=== PATIENT | female | born 1970 | race Caucasian/White ===

== ENCOUNTER 2022-04-25 01:48 | Day surgery (SDC) | payer OTHER, SELFPAY ==
[2022-04-11 13:33] VITALS: BMI 26.8
--- NOTE | 2022-04-25 09:31 | PM.HPGS ---
History of Present Illness History of Present Illness Consent: Risks, benefits, and alternatives have been discussed and questions answered. Patient agrees to proceed with procedure. Chief complaint: neoplasm screening Narrative: Rl Gutierrez is a 51 year old female Presents for screening colonoscopy. Patient's current weight appetite bowel movements are normal. Patient denies abdominal pain. She has had no bleeding. Family history noncontributory. Review of Systems Review of Systems: Review of systems noncontributory. [facility] Past Medical History Medical History (Updated 03/12/22 @ 18:08 by Alexa Perez PA-C) Anxiety Asthma Dyslipidemia Vitamin D deficiency Surgical History Surgical History (Updated 03/12/22 @ 18:06 by Alexa Perez PA-C) History of lumbar fusion Family History Family History (Updated 03/12/22 @ 09:26 by Nikkie Stevenson) Mother Hyperlipidemia Father Cardiomyopathy CKD (chronic kidney disease) Sibling Tachycardia Grandparent Carcinoma of colon Transaminitis Dyslipidemia Social History Social History (Updated 03/12/22 @ 08:26 by Nikkie Stevenson) Smoking status: Never smoker Alcohol intake: current Alcohol use details: rare use Substance use: never Substance use type: does not use Living arrangements: with family Gender identity (if verbalized by the patient): Female Sexual Orientation (if Verbalized by the Patient): Straight or Heterosexual Spiritual care concerns: No Meds Home Medications and Allergies Home Medications Medication Instructions Recorded Confirmed Type ergocalciferol (vitamin D2) 1,250 1,250 mcg PO WEEKLY #12 caps 02/07/22 04/11/22 Rx mcg (50,000 unit) capsule pseudoephedrine HCl 120 mg 120 mg PO DAILY #90 tabs 02/07/22 04/11/22 Rx tablet,extended release (Sudafed 12 Hour) pregabalin 75 mg capsule (Lyrica) 75 mg PO TID 03/12/22 04/11/22 History rosuvastatin 5 mg tablet 5 mg PO DAILY #90 tabs 03/31/22 04/11/22 Rx sertraline 50 mg tablet 50 mg PO DAILY #90 tabs 03/31/22 04/11/22 Rx sodium,potassium,mag sulfates 17.5 See Rx Instructions PO .COMPLEX 04/01/22 04/11/22 Rx gram-3.13 gram-1.6 gram oral soln #354 mL (Suprep Bowel Prep Kit) cholecalciferol (vitamin D3) 100 100 mcg PO DAILY 04/11/22 04/11/22 History mcg (4,000 unit) tablet meloxicam 15 mg tablet 15 mg PO DAILY 04/11/22 04/11/22 History Allergies Allergy/AdvReac Type Severity Reaction Status Date / Time ragweed pollen Allergy Unknown Unknown Verified 04/11/22 13:44 atorvastatin AdvReac Agitated Verified 04/11/22 13:44 tree pollen Allergy Unknown Unknown Uncoded 04/11/22 13:44 Exam Narrative: Physical exam reveals patient be alert. Vital signs stable. HEENT exam is unremarkable. Patient is anicteric. Lungs are clear to auscultation and percussion. Heart is without murmur or extra sounds. Abdomen bowel sounds are present soft nontender with no organomegaly. Digital external rectal exam is normal. Assessment and Plan Assessment and plan (1) Screening for colon cancer: Code(s): Z12.11 - Encounter for screening for malignant neoplasm of colon Status: Acute Assessment and Plan: Patient presents today for screening colonoscopy. She appears to be at average risk for colon polyps. Further recommendations will be given after endoscopy.
[2022-04-25 09:34] VITALS: BP 121/66; PULSE 72; RESP 18; TEMP 36.3; O2SAT 99
--- NOTE | 2022-04-25 09:40 | WPDANESEPPF ---
Anes - Initial Pre Proc Eval Procedure: Operation Date: 04/25/22 10:30 Proposed Procedures p Screening Colonoscopy - Onel Bruce MD Date/Time: 04/25/22 09:40 Surgeon: Onel Bruce MD Pre Op Diagnosis: neoplasm screening Patient Data Age: 51 Gender: F Height: 1.73 m Weight: 77.5 kg Last Vital Signs Temp 97.3 F L 04/25/22 09:34 Pulse 72 04/25/22 09:34 Resp 18 04/25/22 09:34 BP 121/66 04/25/22 09:34 Pulse Ox 99 04/25/22 09:34 O2 Del Method Room Air 04/25/22 09:34 Allergies Allergy/AdvReac Type Severity Reaction Status Date / Time ragweed pollen Allergy Unknown Unknown Verified 04/25/22 09:33 atorvastatin AdvReac Agitated Verified 04/25/22 09:33 tree pollen Allergy Unknown Unknown Uncoded 04/25/22 09:33 Home Medications Medication Instructions Recorded Confirmed Type ergocalciferol (vitamin D2) 1,250 1,250 mcg PO WEEKLY #12 caps 02/07/22 04/11/22 Rx mcg (50,000 unit) capsule pseudoephedrine HCl 120 mg 120 mg PO DAILY #90 tabs 02/07/22 04/11/22 Rx tablet,extended release (Sudafed 12 Hour) pregabalin 75 mg capsule (Lyrica) 75 mg PO TID 03/12/22 04/11/22 History rosuvastatin 5 mg tablet 5 mg PO DAILY #90 tabs 03/31/22 04/11/22 Rx sertraline 50 mg tablet 50 mg PO DAILY #90 tabs 03/31/22 04/11/22 Rx sodium,potassium,mag sulfates 17.5 See Rx Instructions PO .COMPLEX 04/01/22 04/11/22 Rx gram-3.13 gram-1.6 gram oral soln #354 mL (Suprep Bowel Prep Kit) cholecalciferol (vitamin D3) 100 100 mcg PO DAILY 04/11/22 04/11/22 History mcg (4,000 unit) tablet meloxicam 15 mg tablet 15 mg PO DAILY 04/11/22 04/11/22 History Patient hx anesthesia problems: none Family hx anesthesia problems: none Results Review: All pre-operative results and documents have been reviewed as part of the pre-operative evaluation. [facility] Past Medical History Medical History (Updated 03/12/22 @ 18:08 by Alexa Perez PA-C) Anxiety Asthma Dyslipidemia Vitamin D deficiency Surgical History Surgical History (Updated 03/12/22 @ 18:06 by Alexa Perez PA-C) History of lumbar fusion Family History Family History (Updated 03/12/22 @ 09:26 by Nikkie Stevenson) Mother Hyperlipidemia Father Cardiomyopathy CKD (chronic kidney disease) Sibling Tachycardia Grandparent Carcinoma of colon Transaminitis Dyslipidemia Social History Social History (Updated 03/12/22 @ 08:26 by Nikkie Stevenson) Smoking status: Never smoker Alcohol intake: current Alcohol use details: rare use Substance use: never Substance use type: does not use Living arrangements: with family Gender identity (if verbalized by the patient): Female Sexual Orientation (if Verbalized by the Patient): Straight or Heterosexual Spiritual care concerns: No Anes - Eval Final PreProcedure Day of Procedure 04/25/22 09:40 Patient weight: normal Heart: regular rate and rhythm Lungs: clear to auscultation Airway: Mallampati scale class II Neurological: alert and oriented Last oral intake: >/= 8 hours ASA classification: II Emergent: no Anesthetic plan: proceed Anesthesia type and monitoring: general GIVS and standard monitoring Results Review: All pre-operative results and documents have been reviewed as part of the pre-operative evaluation. Informed Consent: The patient's anesthetic plan and its attendant risks and benefits were discussed with the patient/family/POA. Questions were solicited and answers provided to the satisfaction of the patient/family/POA.
[2022-04-25] MEDS: LACTATED RINGERS 1,000 ML 150 ML IV CONT (09:51)
[2022-04-25 10:34] VITALS: BP 123/74; PULSE 73; RESP 16; O2SAT 100
[2022-04-25 10:44] VITALS: BP 122/79; PULSE 72; RESP 16; O2SAT 100
[2022-04-25 10:54] VITALS: BP 125/87; PULSE 74; RESP 20; O2SAT 100
== END 2022-04-25 11:04 | disposition home or self-care (01) ==
PROVIDERS: PCP Physician Assistant Medical; Visit Provider Internal Medicine Gastroenterology
PROC: 0DJD8ZZ Inspection of Lower Intestinal Tract, Via Natural or Artificial Opening Endoscopic (ICD-10-PCS; CPT 45378; principal; 2022-04-25 10:30)
DX: Z12.11 Encounter for screening for malignant neoplasm of colon (principal); K64.8 Other hemorrhoids; E78.5 Hyperlipidemia, unspecified; E55.9 Vitamin D deficiency, unspecified; F41.9 Anxiety disorder, unspecified; Z98.1 Arthrodesis status
CPT/HCPCS: 45378; J2704; J7120

== ENCOUNTER 2024-05-30 12:40 | Outpatient (CLI) | payer OTHER, SELFPAY ==
--- NOTE | ~2024-05-30 | MR_ITS ---
EXAMINATION: MR ankle LT wo/w con DATE: 05/30/2024 14:20 INDICATION: Lump at the lateral left ankle TECHNIQUE: Magnetic resonance imaging (MRI) of the left ankle was performed without and with 15 mL Mu ltihance intravenous contrast. Sequences included axial, sagittal and coronal PD-weighted FSE, sagitt al and coronal PD-weighted FS FSE, axial T2-weighted FS FSE, axial T1-weighted FS FSE and postcontras t axial, sagittal and coronal T1-weighted FS FSE. COMPARISON: None. FINDINGS: Medial ankle ligaments: Deep and superficial deltoid ligaments as well as the spring ligament are normal. Lateral ankle ligaments: The anterior and posterior inferior tibiofibular ligaments are normal. The anterior talofibular, calc aneofibular and posterior talofibular ligaments are normal. Tendons: Achilles tendon is normal. The peroneus longus and brevis tendons are normal. Fusiform thickening and mild increased signal of the distal tibialis anterior tendon without discrete tear consistent with f ocal moderate tendinopathy or potentially a fibroma. The extensor hallucis longus and extensor digito rum longus tendons are normal. The tibialis posterior, flexor digitorum longus and flexor hallucis lo ngus tendons are normal. Plantar fascia: There is fusiform thickening with mild central increased signal and without enhancement in the centra l component of the plantar aponeurosis centered 2 cm distal to its calcaneal origin which is most con sistent with a plantar fibroma. Bones/other: Bone alignment is normal. There is normal bone marrow signal throughout. No fracture or pathologic ma rrow replacing process. Joint spaces are normal. The palpable lump of concern at the lateral left ank le corresponds to a 1.6 x 1.7 x 0.3 cm T2 hyperintense cystic lesion with thin peripheral rim of syno vial enhancement. There is a multilobulated ganglion cyst measuring 1.5 x 1.2 x 0.7 cm at the lateral margin of the talonavicular articulation. Physiologic amount fluid in the joint spaces. No other abn ormal fluid collections. No abnormally enhancing masses identified. IMPRESSION: 1. 1.6 x 1.7 x 0.3 cm. Rim-enhancing fluid collection overlying the lateral malleolus which appears t o account for the palpable nodule of concern with differential including ganglion cyst, bursa, chroni c post traumatic seroma or abscess in the appropriate clinical setting. 2. 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 3. Moderate tendinopathy versus fibroma along the distal tibialis anterior tendon. Reviewed, dictated and finalized at location A. OL [employer] IMPRESSION: 1. 1.6 x 1.7 x 0.3 cm. Rim-enhancing fluid collection overlying the lateral mal leolus which appears to account for the palpable nodule of concern with differe ntial including ganglion cyst, bursa, chronic post traumatic seroma or abscess in the appropriate clinical setting. 2. 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 3. Moderate tendinopathy versus fibroma along the distal tibialis anterior tend on.
--- NOTE | ~2024-05-30 | MR_ITS ---
EXAMINATION: MR ankle RT wo/w con DATE: 05/30/2024 14:20 INDICATION: Soft tissue mass at the right heel TECHNIQUE: Magnetic resonance imaging (MRI) of the right ankle was performed without and with 15 mL M ultihance intravenous contrast. Sequences included axial, sagittal and coronal PD-weighted FSE, sagit enzo and coronal PD-weighted FS FSE, axial T2-weighted FS FSE, axial T1-weighted FS FSE and postcontra st axial, sagittal and coronal T1-weighted FS FSE. COMPARISON: None. FINDINGS: Medial ankle ligaments: Deep and superficial deltoid ligaments as well as the spring ligament are normal. Lateral ankle ligaments: The anterior and posterior inferior tibiofibular ligaments are normal. The anterior talofibular, calc aneofibular and posterior talofibular ligaments are normal. Tendons: Achilles tendon is normal. The peroneus longus and brevis tendons are normal. The tibialis anterior a nd extensor hallucis longus and extensor digitorum longus tendons are normal. The tibialis posterior, flexor digitorum longus and flexor hallucis longus tendons are normal. Plantar fascia: The plantar aponeurosis is normal. Bones/other: Bone alignment is normal with normal marrow signal throughout. Joint spaces are mild osteoarthritis a t the second-fourth tarsal metatarsal joints. There is an ovoid 12 x 6 x 6 mm T1 and T2 hyperintense, enhancing and nonfat saturating lesion in the subcutaneous fat overlying the lateral margin of the p osterior tuberosity of the calcaneus consistent with neoplasm with imaging features most consistent w ith a schwannoma or peripheral nerve sheath tumor. Visualized amount fluid in the joint spaces. IMPRESSION: 1. 12 x 6 x 6 mm T2 and T1 hyperintense enhancing lesion in the subcutaneous fat at the lateral hal n of the posterior tuberosity of the calcaneus consistent with neoplasm which could be either benign or malignant. While nonspecific, the imaging features are most suggestive of a benign schwannoma or p eripheral nerve sheath tumor. Reviewed, dictated and finalized at location A. R [employer] IMPRESSION: 1. 12 x 6 x 6 mm T2 and T1 hyperintense enhancing lesion in the subcutaneous fa t at the lateral margin of the posterior tuberosity of the calcaneus consistent with neoplasm which could be either benign or malignant. While nonspecific, th e imaging features are most suggestive of a benign schwannoma or peripheral ner ve sheath tumor.
== END 2024-05-30 12:41 | disposition home or self-care (01) ==
LOC: MICIMG 12:41
PROVIDERS: PCP Physician Assistant Medical; Visit Provider Podiatrist Foot & Ankle Surgery
DX: R22.43 Localized swelling, mass and lump, lower limb, bilateral (principal); D21.22 Benign neoplasm of connective and other soft tissue of left lower limb, including hip
CPT/HCPCS: 73723; A9577